=== PATIENT | male | born 1960 ===

== ENCOUNTER → 2021-07-30 11:59 | Outpatient (CLI) | payer OTHER, SELFPAY ==
--- NOTE | ~2021-07-30 | CT_ITS ---
EXAMINATION: CT diagnostic chest wo con DATE: 07/30/2021 12:14 INDICATION: Lung nodules TECHNIQUE: Computed tomography (CT) of the chest was performed without intravenous contrast. The dose -length product (DLP) was 368.14 mGy-cm. Automated exposure control and iterative reconstruction tech nique were employed. COMPARISON: None FINDINGS: There is a 2 mm nodule of the right upper lobe. A 3 mm groundglass nodule is seen in the ri ght upper lobe on image 40. There are bilateral calcified pleural-based nodules/plaques. The lungs ar e free of acute opacities. There is no pleural effusion or pneumothorax. No pathologically enlarged t horacic lymph nodes are identified. The heart size is normal. Calcified coronary artery atheroscleros is is noted. There is moderate thoracic spondylosis. IMPRESSION: 1. Small pulmonary nodules which likely reflect old granulomatous disease. 2. Calcified pleural plaques/nodules which can be seen in the setting of prior asbestos exposure. Reviewed, dictated and finalized at location A.
== END ==
PROVIDERS: PCP Internal Medicine
DX: R91.8 Other nonspecific abnormal finding of lung field (principal); I25.10 Atherosclerotic heart disease of native coronary artery without angina pectoris; M47.814 Spondylosis without myelopathy or radiculopathy, thoracic region
CPT/HCPCS: 71250